=== PATIENT | female | born 1965 | race Caucasian/White ===

== ENCOUNTER 2018-10-10 14:32 | Emergency (ER) | payer MEDICARE, MEDICAID ==
[~2018-10-10] VITALS: Ht 175.3 cm; Wt 117.9 kg
[2018-10-10 16:04] VITALS: BP 100/70
[2018-10-10] MEDS ORDERED: METHOCARBAMOL 500 MG TAB PO ONE (16:15)
[2018-10-10] MEDS ORDERED: KETOROLAC TROMETH 60MG/2ML VIAL IM ONE (16:15)
== END 2018-10-10 17:22 | disposition home or self-care (01) ==
LOC: EDSEX 14:32 → EDBD 14:32 → EDSEX 14:45 → ER 14:45
DX: S02.32XA Fracture of orbital floor, left side, initial encounter for closed fracture (principal); S02.2XXA Fracture of nasal bones, initial encounter for closed fracture; S13.4XXA Sprain of ligaments of cervical spine, initial encounter; M25.561 Pain in right knee; E11.9 Type 2 diabetes mellitus without complications; E78.5 Hyperlipidemia, unspecified; F17.210 Nicotine dependence, cigarettes, uncomplicated; I10 Essential (primary) hypertension; Z90.49 Acquired absence of other specified parts of digestive tract; Z90.710 Acquired absence of both cervix and uterus; V27.0XXA Motorcycle driver injured in collision with fixed or stationary object in nontraffic accident, initial encounter; Y93.55 Activity, bike riding; Y99.8 Other external cause status; Y92.89 Other specified places as the place of occurrence of the external cause
CPT/HCPCS: 70450; 70486; 72125; 73562; 96372; 99284; J1885

== ENCOUNTER 2022-06-13 13:32 | Emergency (ER) | payer MEDICARE, MEDICAID ==
[~2022-06-13] VITALS: Ht 160 cm; Wt 95.4 kg
[2022-06-13 15:12] LABS: Basophils # (auto) 0 10 ^3/uL (0-0.2); Basophils % (auto) 0.4 % (0.0-2.0); Eosinophils # (auto) 0.2 10 ^3/uL (0-0.8); Eosinophils % (auto) 2.3 % (0.0-7.0); Hematocrit 49.2 % (41.0-53.0); Hemoglobin 16.5 g/dL (13.5-17.5); Lymphocytes # (auto) 2.3 10 ^3/uL (0.4-5.4); Lymphocytes % (auto) 25.1 % (10.0-50.0); Mean Corpuscular Hemoglobin 30.4 pg (28.0-32.0); Mean Corpuscular Hgb Conc. 33.5 g/dL (32.0-36.0); Mean Corpuscular Volume 90.7 fL (80.0-100.0); Monocytes # (auto) 0.8 10 ^3/uL (0-1.3); Monocytes % (auto) 8.3 % (0.0-12.0); Neutrophils # (auto) 5.9 10 ^3/uL (1.6-8.6); Neutrophils % (auto) 63.9 % (37.0-80.0); Nucleated Red Blood Cells % 0.3 %; Red Blood Cells 5.43 10^6/uL (4.5-5.90); Red Cell Distribution Width 14.9 % (11.8-14.3); White Blood Cell 9.3 10^3/uL (4.4-10.8)
[2022-06-13 15:16] LABS: Urine Bacteria NONE SEEN /hpf (None Seen); Urine Blood Negative /uL (Negative); Urine Specific Gravity 1.012 (1.001-1.035); Urine Sperm PRESENT /hpf (None Seen); Urine WBC 1 /hpf (0 - 3)
[2022-06-13 15:29] LABS: Albumin 3.6 g/dL (3.4-5.0); Calcium 9.3 mg/dL (8.5-10.1); Potassium 4.4 mmol/L (3.5-5.1)
[2022-06-13 15:44] LABS: BUN/Creatinine Ratio 12.8 (10.0-20.0); Bilirubin, Total 0.6 mg/dL (0.2-1.0)
[2022-06-13] MEDS ORDERED: IOHEXOL 350 MG/ML 100ML IJ ONE (16:31)
[2022-06-13] MEDS ORDERED: IOHEXOL 300 MG/ML 100ML BOTTLE IJ ONE (16:35)
[2022-06-13 21:12] VITALS: BP 154/91
[2022-06-13] MEDS ORDERED: IBUP800T27 PO (21:44)
[2022-06-13] MEDS ORDERED: ONDA-144 PO (21:44)
== END 2022-06-13 21:13 | disposition home or self-care (01) ==
LOC: ER 13:32
DX: K85.90 Acute pancreatitis without necrosis or infection, unspecified (principal); K76.0 Fatty (change of) liver, not elsewhere classified; E11.9 Type 2 diabetes mellitus without complications; E78.5 Hyperlipidemia, unspecified; I10 Essential (primary) hypertension; F17.210 Nicotine dependence, cigarettes, uncomplicated; Z90.49 Acquired absence of other specified parts of digestive tract
CPT/HCPCS: 36415; 74177; 76705; 80053; 81001; 83690; 85025; 99285; Q9967